=== PATIENT | male | born 1955 | race African-American/Black ===

== ENCOUNTER → 2016-08-06 | Outpatient (CLI) | payer OTHER ==
[~2016-08-06] MED LIST: AMLO10TA2 PO; BENA40TA2 PO; DICL-176 PO; HYDR25TA4 PO; TRAM50TA2 PO
[2016-08-06 12:57] LABS: Basophils # (auto) 0 uL; Basophils % (auto) 0.2 % (0.0-2.0); Eosinophils # (auto) 0.2 uL; Eosinophils % (auto) 2.6 % (0.0-7.0); Hematocrit 41.7 % (41.0-53.0); Hemoglobin 13.6 g/dL (13.5-17.5); Lymphocytes # (auto) 1.6 uL; Lymphocytes % (auto) 20.5 % (10.0-50.0); Mean Corpuscular Hemoglobin 28.1 pg (28.0-32.0); Mean Corpuscular Hgb Conc. 32.7 g/dL (32.0-36.0); Mean Corpuscular Volume 85.9 fL (80.0-100.0); Mean Platelet Volume 7.3 fL (7.4-10.4); Monocytes # (auto) 0.6 uL; Monocytes % (auto) 7.5 % (0.0-12.0); Neutrophils # (auto) 5.5 uL; Neutrophils % (auto) 69.2 % (37.0-80.0); Platelet Count (auto) 342 10^3/uL (140-450); Red Cell Distribution Width 15.8 % (11.6-16.0); White Blood Cell 7.9 10^3/uL (4.4-10.8)
[2016-08-06 13:14] LABS: INR 1.02 (0.9-1.15); Partial Thromboplastin Time 28.2 sec (22.64-33.71); Prothrombin Time 10.5 sec (9.37-12.3)
== END | disposition home or self-care (01) ==
LOC: LAB 09:10
PROVIDERS: ATTEND Internal Medicine Gastroenterology
DX: Z01.812 Encounter for preprocedural laboratory examination (principal)
CPT/HCPCS: 36415; 85025; 85610; 85730

== ENCOUNTER 2016-08-09 07:36 | Day surgery (SDC) | payer OTHER ==
[~2016-08-09] VITALS: Ht 170.2 cm; Wt 129.3 kg
[2016-08-09] MEDS ORDERED: SODIUM CHLORIDE LOCK 10 ML ONE (08:07)
[2016-08-09] MEDS ORDERED: diphenhdrAMINE HCL 50 MG/1 ML VL ONE (08:08)
[2016-08-09] MEDS ORDERED: FLUMAZENIL 0.1 MG/ML INJ 10ML MDV IV ONE (08:10)
[2016-08-09] MEDS ORDERED: NALOXONE HCL 0.4 MG/ML VIAL ONE (08:10)
[2016-08-09] MEDS: fentaNYL CITRATE 100 MCG/2 ML VL ONE ×2 (09:13→09:16)
[2016-08-09] MEDS: MIDAZOLAM HCL 5 MG/ML-1ML VIAL ONE ×2 (09:13→09:16)
[2016-08-09] MEDS ORDERED: MIDAZOLAM HCL 5 MG/ML-1ML VIAL ONE (09:15)
[2016-08-09] MEDS ORDERED: fentaNYL CITRATE 100 MCG/2 ML VL ONE (09:15)
[2016-08-09 10:00] VITALS: BP 123/80
== END 2016-08-09 10:10 | disposition home or self-care (01) ==
LOC: GI 07:36
PROVIDERS: ATTEND Internal Medicine Gastroenterology
DX: Z12.11 Encounter for screening for malignant neoplasm of colon (principal); K57.30 Diverticulosis of large intestine without perforation or abscess without bleeding; Z85.038 Personal history of other malignant neoplasm of large intestine; E66.9 Obesity, unspecified; M19.90 Unspecified osteoarthritis, unspecified site; Z90.49 Acquired absence of other specified parts of digestive tract
CPT/HCPCS: 45380; 88305; J1200; J2250; J3010; J7030

== ENCOUNTER → 2017-06-04 | Outpatient (CLI) | payer OTHER ==
[~2017-06-04] MED LIST changes: -BENA40TA2 PO; +BENA40TA7 PO
== END | disposition home or self-care (01) ==
LOC: US 10:06
PROVIDERS: ATTEND Internal Medicine
DX: E04.2 Nontoxic multinodular goiter (principal)
CPT/HCPCS: 76536

== ENCOUNTER → 2017-06-24 | Outpatient (CLI) | payer OTHER | END | disposition home or self-care (01) | LOC: XY 09:27 | PROVIDERS: ATTEND Internal Medicine | DX: Z85.038 Personal history of other malignant neoplasm of large intestine (principal) | CPT/HCPCS: 78315; A9503 ==

== ENCOUNTER 2017-09-29 18:51 | Emergency (ER) | payer OTHER ==
[~2017-09-29] VITALS: Ht 170.2 cm; Wt 133.8 kg
[2017-09-29] MEDS ORDERED: diphenhdrAMINE HCL 50 MG/1 ML VL ONE (19:07)
[2017-09-29] MEDS ORDERED: methylPREDNISolone SOD SUCC 125 MG/2 ML VL ONE (19:07)
[2017-09-29] MEDS ORDERED: diphenhdrAMINE HCL 50 MG/1 ML VL IV ONE (19:30)
[2017-09-29] MEDS ORDERED: methylPREDNISolone SOD SUCC 125 MG/2 ML VL IV ONE (19:30)
[2017-09-29 20:39] LABS: Basophils # (auto) 0 uL; Basophils % (auto) 0.1 % (0.0-2.0); Eosinophils # (auto) 0.1 uL; Eosinophils % (auto) 1.1 % (0.0-7.0); Hematocrit 41.3 % (41.0-53.0); Hemoglobin 13.4 g/dL (13.5-17.5); Lymphocytes # (auto) 1.4 uL; Lymphocytes % (auto) 19.6 % (10.0-50.0); Mean Corpuscular Hemoglobin 27.9 pg (28.0-32.0); Mean Corpuscular Hgb Conc. 32.3 g/dL (32.0-36.0); Mean Corpuscular Volume 86.2 fL (80.0-100.0); Monocytes # (auto) 0.5 uL; Monocytes % (auto) 6.8 % (0.0-12.0); Neutrophils # (auto) 5.1 uL; Neutrophils % (auto) 72.4 % (37.0-80.0); Nucleated Red Blood Cells % 0.1 %; Platelet Count (auto) 284 10^3/uL (140-450); Red Blood Cells 4.79 10^6/uL (4.5-5.90); Red Cell Distribution Width 15.6 % (11.8-14.3); White Blood Cell 7.1 10^3/uL (4.4-10.8)
[2017-09-29 20:52] LABS: Albumin 2.8 g/dL (3.4-5.0); BUN/Creatinine Ratio 11.9; Bilirubin, Total 0.2 mg/dL (0.2-1.0); Calcium 7.5 mg/dL (8.5-10.1); Total Protein 6.5 g/dL (6.4-8.2)
[2017-09-29] MEDS ORDERED: ASPirin 81 mg TAB PO ONE (21:14)
[2017-09-29] MEDS ORDERED: POTASSIUM CHL 20 Meq TABLET PO ONE ×2 (21:14)
[2017-09-29] MEDS ORDERED: ASPirin 81 mg TAB ONE (21:14)
[2017-09-29 22:34] VITALS: BP 122/83
[2017-09-29] MEDS ORDERED: FAMOTIDINE 20 MG TAB PO ONE (22:45)
[2017-09-29] MEDS ORDERED: FAMOTIDINE 20 MG TAB ONE (22:45)
== END 2017-09-29 23:26 | disposition home or self-care (01) ==
LOC: ER 18:55
DX: T78.40XA Allergy, unspecified, initial encounter (principal); T78.1XXA Other adverse food reactions, not elsewhere classified, initial encounter; J44.9 Chronic obstructive pulmonary disease, unspecified; I10 Essential (primary) hypertension; Z91.041 Radiographic dye allergy status; Z85.038 Personal history of other malignant neoplasm of large intestine; Y92.89 Other specified places as the place of occurrence of the external cause
CPT/HCPCS: 36415; 71045; 80053; 84484; 85025; 96374; 96375; 99285; J1200; J2930; 93005

== ENCOUNTER 2017-12-27 16:06 | Emergency (ER) | payer OTHER ==
[~2017-12-27] VITALS: Ht 170.2 cm; Wt 133.8 kg
[2017-12-27 16:22] VITALS: BP 135/88
== END 2017-12-27 17:52 | disposition home or self-care (01) ==
LOC: ER 16:06
DX: K57.32 Diverticulitis of large intestine without perforation or abscess without bleeding (principal); J44.9 Chronic obstructive pulmonary disease, unspecified; I10 Essential (primary) hypertension; E78.5 Hyperlipidemia, unspecified; Z91.013 Allergy to seafood; Z91.041 Radiographic dye allergy status
CPT/HCPCS: 74176; 81002

== ENCOUNTER 2020-06-10 11:16 | Day surgery (SDC) | payer OTHER ==
[2020-06-06 11:37] LABS: Basophils # (auto) 0 10 ^3/uL (0-0.2); Eosinophils # (auto) 0.2 10 ^3/uL (0-0.8); Hematocrit 31.7 % (41.0-53.0); Lymphocytes # (auto) 1.3 10 ^3/uL (0.4-5.4); Monocytes # (auto) 0.7 10 ^3/uL (0-1.3); Red Blood Cells 4.41 10^6/uL (4.5-5.90)
[2020-06-06 11:39] LABS: Basophils % (auto) 0.4 % (0.0-2.0); Eosinophils % (auto) 2.4 % (0.0-7.0); Lymphocytes % (auto) 16.3 % (10.0-50.0); Mean Corpuscular Hemoglobin 22.7 pg (28.0-32.0); Mean Corpuscular Hgb Conc. 31.5 g/dL (32.0-36.0); Mean Corpuscular Volume 72.1 fL (80.0-100.0); Monocytes % (auto) 8.4 % (0.0-12.0); Neutrophils # (auto) 5.9 10 ^3/uL (1.6-8.6); Neutrophils % (auto) 72.5 % (37.0-80.0); Platelet Count (auto) 443 10^3/uL (140-450); White Blood Cell 8.1 10^3/uL (4.4-10.8)
[2020-06-06 11:51] LABS: INR 1.03 (0.9-1.15); Partial Thromboplastin Time 24.8 sec (23.0-31.2)
[2020-06-06 12:14] LABS: Urine WBC None Seen /hpf (0 - 3)
[2020-06-06 12:19] LABS: Urine Bacteria NONE SEEN /hpf (None Seen); Urine Blood Negative /uL (Negative); Urine Specific Gravity 1.011 (1.001-1.035)
[2020-06-06 12:22] LABS: Potassium 3.4 mmol/L (3.5-5.1)
[2020-06-06 12:41] LABS: BUN/Creatinine Ratio 11.6; Bilirubin, Total 0.5 mg/dL (0.2-1.0); Calcium 8.9 mg/dL (8.5-10.1); Total Protein 8.5 g/dL (6.4-8.2)
[~2020-06-10] VITALS: Ht 170.2 cm; Wt 129.3 kg
[~2020-06-10 11:16] MED LIST changes: +ALBUAER3 IN; +AMLO-496 PO; -AMLO10TA2 PO; -BENA40TA7 PO; +BENA40TA8 PO; +CHOL1CAP PO; -DICL-176 PO; +DICL75TA3 PO; +FLUT1SPR21; +OMEP-434 PO; +OYST500T29 PO; +TIOT1AER2 IN
[2020-06-10] MEDS ORDERED: LIDOCAINE 1% (LOCAL ANESTH.) PF 5ml SDV ONE (12:00)
[2020-06-10] MEDS ORDERED: SUCCINYLCHOLINE CHLORIDE 20 MG/ML 10ML VIAL IV ONE (12:00)
[2020-06-10] MEDS ORDERED: MIDAZOLAM HCL 1MG/1ML-2 ML VIAL ONE (12:02)
[2020-06-10] MEDS ORDERED: PROPOFOL 10 MG/ML 20 ML IV ONE ×2 (12:03→12:04)
[2020-06-10] MEDS ORDERED: KETAMINE HCL 10 ML ONE (12:03)
[2020-06-10] MEDS ORDERED: METOCLOPRAMIDE HCL 5MG/ml INJ 2ml VIAL ONE (12:04)
[2020-06-10] MEDS ORDERED: diphenhdrAMINE HCL 50 MG/1 ML VL ONE (12:04)
[2020-06-10] MEDS ORDERED: GLYCOPYRROLATE 0.2 MG/ML 1ML VIAL ONE (12:04)
[2020-06-10] MEDS ORDERED: HYDROmorphone HCL 2 MG/ML VL IV PRN ×2 (12:45)
[2020-06-10] MEDS ORDERED: ONDANSETRON HCL 4 MG/2 ML VIAL IV PRN (12:45)
[2020-06-10] MEDS ORDERED: NALOXONE HCL 0.4 MG/ML VIAL IV PRN (12:45)
[2020-06-10 13:00] VITALS: BP 120/87
== END 2020-06-10 14:00 | disposition home or self-care (01) ==
LOC: GI 11:16
PROVIDERS: ATTEND Internal Medicine Gastroenterology
DX: Z12.11 Encounter for screening for malignant neoplasm of colon (principal); D12.8 Benign neoplasm of rectum; K57.30 Diverticulosis of large intestine without perforation or abscess without bleeding; K63.89 Other specified diseases of intestine; G47.33 Obstructive sleep apnea (adult) (pediatric); J44.9 Chronic obstructive pulmonary disease, unspecified; M19.90 Unspecified osteoarthritis, unspecified site; K21.9 Gastro-esophageal reflux disease without esophagitis; I10 Essential (primary) hypertension; E66.01 Morbid (severe) obesity due to excess calories; E11.9 Type 2 diabetes mellitus without complications; Z68.41 Body mass index [BMI] 40.0-44.9, adult; Z85.038 Personal history of other malignant neoplasm of large intestine; Z91.041 Radiographic dye allergy status; Z91.013 Allergy to seafood; Z98.890 Other specified postprocedural states; Z79.899 Other long term (current) drug therapy; Z20.822 Contact with and (suspected) exposure to COVID-19
CPT/HCPCS: 36415; 45385; 80053; 81001; 82962; 85025; 85610; 85730; 88305; J0330; J1200; J2250; J2704; J2765; J7030; U0003

== ENCOUNTER → 2020-09-08 | Outpatient (CLI) | payer MEDICARE, OTHER | END | disposition home or self-care (01) | LOC: LAB 09:35 | PROVIDERS: ATTEND Internal Medicine Pulmonary Disease | DX: Z01.812 Encounter for preprocedural laboratory examination (principal); Z20.822 Contact with and (suspected) exposure to COVID-19 | CPT/HCPCS: 36415; 87426 ==

== ENCOUNTER → 2020-09-09 | Outpatient (CLI) | payer MEDICARE, OTHER ==
[~2020-09-09] MED LIST changes: +ALBUTEROL SULF 2.5 MG/0.5ML(0.5%) NEB SOLN ONE
== END | disposition home or self-care (01) ==
LOC: RT 09:07
PROVIDERS: ATTEND Internal Medicine
DX: R06.02 Shortness of breath (principal); J98.4 Other disorders of lung
CPT/HCPCS: 94060; 94727; 94729

== ENCOUNTER → 2020-09-20 | Outpatient (CLI) | payer MEDICARE, OTHER ==
[~2020-09-20] MED LIST changes: -ALBUTEROL SULF 2.5 MG/0.5ML(0.5%) NEB SOLN ONE
== END | disposition home or self-care (01) ==
LOC: Rad HDHVI 08:56
PROVIDERS: ATTEND Internal Medicine Cardiovascular Disease
DX: I10 Essential (primary) hypertension (principal); R06.02 Shortness of breath
CPT/HCPCS: 93306

== ENCOUNTER → 2021-07-18 | Outpatient (CLI) | payer MEDICARE, OTHER ==
[2021-07-18 11:09] LABS: Urine Bacteria NONE SEEN /hpf (None Seen); Urine Blood Negative /uL (Negative); Urine Mucus FEW (None Seen); Urine Specific Gravity 1.018 (1.001-1.035); Urine WBC <1 /hpf (0 - 3)
[2021-07-18 11:23] LABS: Basophils # (auto) 0 10 ^3/uL (0-0.2); Basophils % (auto) 0.4 % (0.0-2.0); Eosinophils # (auto) 0.1 10 ^3/uL (0-0.8); Lymphocytes # (auto) 1.2 10 ^3/uL (0.4-5.4); Monocytes # (auto) 0.6 10 ^3/uL (0-1.3); Neutrophils # (auto) 3.8 10 ^3/uL (1.6-8.6); Nucleated Red Blood Cells % 0.1 %
[2021-07-18 11:26] LABS: Eosinophils % (auto) 2.3 % (0.0-7.0); Hematocrit 33.6 % (41.0-53.0); Hemoglobin 10.5 g/dL (13.5-17.5); Lymphocytes % (auto) 21.5 % (10.0-50.0); Mean Corpuscular Hemoglobin 22.9 pg (28.0-32.0); Mean Corpuscular Hgb Conc. 31.2 g/dL (32.0-36.0); Mean Corpuscular Volume 73.3 fL (80.0-100.0); Monocytes % (auto) 10.1 % (0.0-12.0); Neutrophils % (auto) 65.7 % (37.0-80.0); Red Blood Cells 4.58 10^6/uL (4.5-5.90); Red Cell Distribution Width 19.3 % (11.8-14.3); White Blood Cell 5.8 10^3/uL (4.4-10.8)
[2021-07-18 11:37] LABS: Thyroid Stimulating Hormone 0.58 uIU/mL (0.358-3.74)
[2021-07-18 11:42] LABS: Albumin 3.7 g/dL (3.4-5.0); Calcium 9.4 mg/dL (8.5-10.1); Potassium 3.5 mmol/L (3.5-5.1)
[2021-07-18 11:53] LABS: Free T4 (Free Thyroxine) 1.22 ng/dL (0.89-1.76)
[2021-07-18 11:54] LABS: Prostate Specific Antigen 2.17 ng/mL (0.0-4.0)
[2021-07-18 12:33] LABS: % Iron Saturation 6.6 % (20-55)
== END | disposition home or self-care (01) ==
LOC: LAB 10:05
PROVIDERS: ATTEND Internal Medicine
DX: Z12.5 Encounter for screening for malignant neoplasm of prostate (principal); E11.9 Type 2 diabetes mellitus without complications; I10 Essential (primary) hypertension; D64.9 Anemia, unspecified
CPT/HCPCS: 36415; 80053; 80061; 81001; 82043; 82607; 83036; 83540; 83550; 83615; 84153; 84439; 84443; 84550; 85025; 85652

== ENCOUNTER 2021-12-05 09:07 | Day surgery (SDC) | payer OTHER ==
[2021-11-29 09:15] LABS: Basophils # (auto) 0 10 ^3/uL (0-0.2); Basophils % (auto) 0.3 % (0.0-2.0); Eosinophils # (auto) 0.2 10 ^3/uL (0-0.8); Eosinophils % (auto) 2.9 % (0.0-7.0); Hematocrit 35.8 % (41.0-53.0); Hemoglobin 11.1 g/dL (13.5-17.5); Lymphocytes # (auto) 1.1 10 ^3/uL (0.4-5.4); Mean Corpuscular Hemoglobin 24.3 pg (28.0-32.0); Mean Corpuscular Hgb Conc. 30.9 g/dL (32.0-36.0); Mean Corpuscular Volume 78.6 fL (80.0-100.0); Monocytes # (auto) 0.4 10 ^3/uL (0-1.3); Monocytes % (auto) 7.9 % (0.0-12.0); Neutrophils # (auto) 3.8 10 ^3/uL (1.6-8.6); Neutrophils % (auto) 68.9 % (37.0-80.0); Nucleated Red Blood Cells % 0.1 %; Red Blood Cells 4.55 10^6/uL (4.5-5.90); Red Cell Distribution Width 18.3 % (11.8-14.3); White Blood Cell 5.6 10^3/uL (4.4-10.8)
[2021-11-29 09:41] LABS: INR 1.07 (0.9-1.15); Partial Thromboplastin Time 26.4 sec (23.6-33.0)
[2021-11-29 09:43] LABS: Albumin 3.6 g/dL (3.4-5.0); Potassium 3.4 mmol/L (3.5-5.1)
[2021-11-29 09:46] LABS: BUN/Creatinine Ratio 7.6; Bilirubin, Total 0.6 mg/dL (0.2-1.0); Total Protein 7.7 g/dL (6.4-8.2)
[~2021-12-05] VITALS: Ht 170.2 cm; Wt 108.9 kg
[~2021-12-05 09:07] MED LIST changes: +FER325T PO; +FLUT1AER5 IN
[2021-12-05] MEDS ORDERED: EPINEPHrine HCL 1 MG/10 ML SYRG ONE (09:20)
[2021-12-05] MEDS ORDERED: FLUMAZENIL 0.1 MG/ML INJ 10ML MDV IV ONE (09:20)
[2021-12-05] MEDS ORDERED: NALOXONE HCL 0.4 MG/ML VIAL ONE (09:20)
[2021-12-05] MEDS ORDERED: LIDOCAINE VISCOUS 2% 15ML UD ONE (09:21)
[2021-12-05] MEDS ORDERED: SODIUM CHLORIDE LOCK 10 ML ONE (09:21)
[2021-12-05] MEDS ORDERED: fentaNYL CITRATE 100 MCG/2 ML VL ONE (09:22)
[2021-12-05] MEDS: MIDAZOLAM HCL 5 MG/ML-1ML VIAL ONE ×2 (10:31→10:35)
[2021-12-05] MEDS: diphenhdrAMINE HCL 50 MG/1 ML VL ONE ×2 (10:32→10:33)
[2021-12-05 11:20] VITALS: BP 133/74
== END 2021-12-05 10:47 | disposition home or self-care (01) ==
LOC: GI 09:07
PROVIDERS: ATTEND Internal Medicine Gastroenterology
DX: D64.9 Anemia, unspecified (principal); K31.7 Polyp of stomach and duodenum; K29.90 Gastroduodenitis, unspecified, without bleeding; K44.9 Diaphragmatic hernia without obstruction or gangrene; K29.50 Unspecified chronic gastritis without bleeding; K31.89 Other diseases of stomach and duodenum; Z88.6 Allergy status to analgesic agent; Z20.822 Contact with and (suspected) exposure to COVID-19
CPT/HCPCS: 36415; 43239; 80053; 82962; 85025; 85610; 85730; 88305; 88342; J1200; J2250; J3010; J7030; U0003; G0500

== ENCOUNTER → 2022-01-01 | Outpatient (CLI) | payer OTHER ==
[2022-01-01 11:11] LABS: Protein, Urine 18.9 mg/dL (0.0-11.9)
[2022-01-01 11:20] LABS: Albumin 3.8 g/dL (3.4-5.0); BUN/Creatinine Ratio 16.8; Bilirubin, Total 0.4 mg/dL (0.2-1.0); Calcium 9.7 mg/dL (8.5-10.1); Potassium 3.6 mmol/L (3.5-5.1); Total Protein 8.2 g/dL (6.4-8.2)
== END | disposition home or self-care (01) ==
LOC: LAB 09:51
PROVIDERS: ATTEND Internal Medicine Endocrinology, Diabetes & Metabolism
DX: E11.65 Type 2 diabetes mellitus with hyperglycemia (principal); E03.9 Hypothyroidism, unspecified
CPT/HCPCS: 36415; 80053; 80061; 82570; 83036; 84156; 84436; 84443; 86376; 86800